=== PATIENT | male | born 1965 | race Caucasian/White ===

== ENCOUNTER 2016-11-12 15:50 | Emergency (ER) | payer MEDICARE, OTHER ==
[2016-11-12 13:49] LABS: BASOPHILS 1.4 %; BASOPHILS ABSOLUTE 0.09 10/3/uL (0.0-0.16); EOSINOPHILS 2.2 %; EOSINOPHILS ABSOLUTE 0.14 10/3/uL (0.0-0.53); IMMATURE GRANULOCYTES 0.2 %; IMMATURE GRANULOCYTES ABSOLUTE 0.01 10/3/uL (0.0-0.11); LYMPHOCYTES 20.7 %; MEAN CORPUS HGB CONC 32.6 g/dL (32.0-36.0); MEAN CORPUSCULAR HEMOGLOB 28.4 pg (26.0-34.0); MEAN CORPUSCULAR VOLUME 87.2 fL (80-100); MEAN PLATELET VOLUME 10.5 fL (9.2-13.0); MONOCYTES 5.9 %; MONOCYTES ABSOLUTE 0.37 10/3/uL (0.21-1.20); NEUTROPHILS 69.6 %; NEUTROPHILS ABSOLUTE 4.37 10/3/uL (2.02-8.40); PLATELET COUNT 164 10/3/uL (150-400)
[2016-11-12 13:51] LABS: ER CBC TAT 0 Hrs 08 Mins; HEMATOCRIT 35.3 % (40.0-51.0); HEMOGLOBIN 11.5 g/dL (13.6-17.8); MANUAL DIFF NO %; RED CELL COUNT 4.05 10/6/uL (4.7-6.1); WHITE BLOOD CELLS 6.3 10/3/uL (4.5-10.5)
[2016-11-12 13:57] LABS: INTERNATIONAL NORMAL RATI 1.3 UNITS (-); PARTIAL THROMBO TIME 42.7 SEC (22.5-37.2); PROTIME (NOT ORD) 15.7 SEC (12.0-14.5)
[2016-11-12 14:04] LABS: ALBUMIN 3.3 G/DL (3.5-5.0); ALKALINE PHOSPHATASE 550 U/L (45-117); BUN (BLOOD UREA NITROGEN) 39 MG/DL (6-23); CALCIUM, SERUM 9.5 MG/DL (8.5-10.4); CHLORIDE, SERUM 91 MMOL/L (96-112); CO2 (CARBON DIOXIDE) 32 MMOL/L (24-34); DIRECT BILIRUBIN 0.4 MG/DL (0.0-0.4); GFR AFRICAN AMERICAN 11 ML/MIN (>=60); GFR NON AFRICAN AMERICAN 9 ML/MIN (>=60); GLUCOSE, SERUM 154 MG/DL (60-99); INDIRECT BILIRUBIN(NOT ORDER) 0.4 MG/DL (0.1-0.9); POTASSIUM, SERUM 4.8 MMOL/L (3.5-5.3); SGOT(AST) 21 U/L (5-40); SGPT(ALT) 10 U/L (5-65); SODIUM, SERUM 132 MMOL/L (135-148); TOTAL BILIRUBIN 0.8 MG/DL (0-1.2); TOTAL PROTEIN 7.3 G/DL (6.0-8.5)
[2016-11-12 14:05] LABS: CHEST PAIN PROFILE TAT 0 Hrs 22 Mins; TROPONIN I 0.07 NG/ML (<0.05)
[~2016-11-12 15:50] MED LIST: *UNABLE3; ACET500CAP PO; APRES50 PO; ASAB PO; AUG875 PO; CLARIT10 PO; CLEAR EYE1 OPH; CORDARONE PO; COREG; COREG25 PO; COZAAR100 MG PO; DELSYM30 MG/5 ML PO; GGDM5ML PO; HUMULIN R1 ML SC; HYDROCODONE; INSNOVR; INSNOVR SC; K500 PO; L80 PO; LANTUS; LANTUS SC; LORTAB10 PO; NAP500 PO; NORCO1 TA1 PO; NORCO1 TAB PO; NORV10 PO; NORVASC; NOVOLIN R; PLAVIX; PLAVIX PO; PRAVACHOL40 MG PO; PRIN10 PO; PRIN20 PO; RENA-VITE PO; RENVELA; RENVELA800 MG PO; SENSIPAR30 M1 PO; SILVADENE1 % TOP; SYN.05 PO; TUMS E-X750 M2 PO; TUMSROLL PO; VIBRATAB100 MG PO; ZANTAC150 MG PO
[2016-12-11] MEDS ORDERED: LIPITOR40 PO (14:08)
[2016-12-11] MEDS ORDERED: LEVOTHYROXIN75 MCG PO (14:09)
== END 2016-11-12 16:00 | disposition home or self-care (01) ==
LOC: ER 15:50
PROVIDERS: Hospitalist
DX: R18.8 Other ascites (principal); J06.9 Acute upper respiratory infection, unspecified; Z99.2 Dependence on renal dialysis; J44.9 Chronic obstructive pulmonary disease, unspecified; I10 Essential (primary) hypertension; E11.9 Type 2 diabetes mellitus without complications; Z87.891 Personal history of nicotine dependence; Z89.512 Acquired absence of left leg below knee; Z89.511 Acquired absence of right leg below knee; Z88.5 Allergy status to narcotic agent; Z88.8 Allergy status to other drugs, medicaments and biological substances; Z79.4 Long term (current) use of insulin; Z79.899 Other long term (current) drug therapy
CPT/HCPCS: 71020; 74176; 80048; 80076; 83690; 83735; 84484; 85025; 85610; 85730; 93005; 96374; 99284

== ENCOUNTER 2016-12-21 08:30 | Day surgery (SDC) | payer MEDICARE, OTHER ==
--- NOTE | ~2016-12-21 | EGD ---
EGD REPORT [facility] [address] [place]. [address] NAME: VANCE MENARD : 63 STATUS : REG [facility]#: [id number] AGE: 51 ADM/REG DATE : 12/21/16 MR#: [id number] REPORT SERV DATE: 12/21/16 DICTATED BY: DATE: REPORT STATUS : Draft TRANSCRIBED BY: [employer] DATE: 12/21/16 Endoscopy Center Patient Name: Vance Menard Date of : 1965 Attending MD: YOJANA MURILLO MD Procedure Date No Time: 12/21/2016 Procedure: Upper GI endoscopy Indications: Heartburn, Suspected esophageal reflux Referring MD: VENUS SORIANO Medicines: as per anesthesia Complications: No immediate complications. Procedure: Pre-Anesthesia Assessment: - ASA Grade Assessment: IV - A patient with severe systemic disease that is a constant threat to life. After obtaining informed consent, the endoscope was passed under direct vision. Throughout the procedure, the patient's blood pressure, pulse, and oxygen saturations were monitored continuously. The GIF H190 [id number] was introduced through the mouth, and advanced to the third part of duodenum. The upper GI endoscopy was accomplished without difficulty. The patient tolerated the procedure. Findings: The examined esophagus was normal. A large amount of food (residue) was found in the gastric fundus and in the gastric body. removed with suction The examined duodenum was normal. Impression: - Normal esophagus. - A large amount of food (residue) in the stomach. - Normal examined duodenum. Recommendation: - Continue present medications. Procedure Code(s): --- Professional --- 48400, Esophagogastroduodenoscopy, flexible, transoral; diagnostic, including collection of specimen(s) by brushing or washing, when performed (separate procedure) Diagnosis Code(s): --- Professional --- R12, Heartburn CPT copyright 2013 [employer]. All rights reserved. EGD REPORT [facility] [address] [place]. [address] NAME: VANCE MENARD : [birth year] STATUS : REG [facility] [place] PAT#: [id number] AGE: 51 ADM/REG DATE : 12/21/16 MR#: [id number] REPORT SERV DATE: 12/21/16 DICTATED BY: DATE: REPORT STATUS : Draft TRANSCRIBED BY: [employer] DATE: 12/21/16 The codes documented in this report are preliminary and upon accounting machine servicer review may be revised to meet current compliance requirements. YOJANA MURILLO MD 12/21/2016 10:43 AM This report has been signed electronically. Number of Addenda: 0 Note Initiated On: 12/21/2016 10:19 AM Scope Withdrawal Time 0 hours 0 minutes 0 seconds [address] [place] [address]
--- NOTE | ~2016-12-21 | EGD ---
EGD REPORT [facility] [address] [place]. [address] NAME: VANCE MENARD : [birth year] STATUS : REG [facility]#: [id number] AGE: 51 ADM/REG DATE : 12/21/16 MR#: [id number] REPORT SERV DATE: 12/21/16 DICTATED BY: YOJANA MURILLO DATE: 12/21/16 REPORT STATUS : Draft TRANSCRIBED BY: [employer] DATE: 12/21/16 Endoscopy Center Patient Name: Vance Menard Date of : 1965 Attending MD: YOJANA MURILLO MD Procedure Date No Time: 12/21/2016 Procedure: Colonoscopy Indications: High risk colon cancer surveillance: Personal history of colonic polyps Referring MD: VENUS SORIANO Medicines: as per anesthesia Complications: No immediate complications. Procedure: Pre-Anesthesia Assessment: - ASA Grade Assessment: IV - A patient with severe systemic disease that is a constant threat to life. After I obtained informed consent, the scope was passed under direct vision. Throughout the procedure, the patient's blood pressure, pulse, and oxygen saturations were monitored continuously. The PCF [id number] was introduced through the anus and advanced to the splenic flexure. The colonoscopy was somewhat difficult due to restricted mobility of the colon, significant looping and a tortuous colon. The patient tolerated the procedure. The quality of the bowel preparation was fair. Findings: The perianal and digital rectal examinations were normal. Internal hemorrhoids were found during endoscopy and were mild. sharp angle at splenic flexure scope would not pass Impression: - Internal hemorrhoids. Recommendation: - Perform an air contrast barium enema. Procedure Code(s): --- Professional --- 71739, 51, Colonoscopy, flexible, proximal to splenic flexure; diagnostic, with or without collection of specimen(s) by brushing or washing, with or without colon decompression (separate procedure) Diagnosis Code(s): --- Professional --- K64.8, Other hemorrhoids Z86.010, Personal history of colonic polyps EGD REPORT [facility] [address] [address] NAME: VANCE MENARD : [birth year] STATUS : REG [facility]#: [id number] AGE: 51 ADM/REG DATE : 12/21/16 MR#: [id number] REPORT SERV DATE: 12/21/16 DICTATED BY: YOJANA MURILLO. DATE: 12/21/16 REPORT STATUS : Draft TRANSCRIBED BY: [employer] DATE: 12/21/16 CPT copyright 2013 [employer]. All rights reserved. The codes documented in this report are preliminary and upon stripper black and white review may be revised to meet current compliance requirements. YOJANA MURILLO MD 12/21/2016 11:09 AM This report has been signed electronically. Number of Addenda: 0 Note Initiated On: 12/21/2016 10:20 AM Scope Withdrawal Time 0 hours 0 minutes 0 seconds [address] [address]
[~2016-12-21 08:30] MED LIST changes: +LEVOTHYROXIN75 MCG PO; +LIPITOR40 PO
[2016-12-21 09:20] LABS: CALCIUM, SERUM 9.8 MG/DL (8.5-10.4); CHLORIDE, SERUM 96 MMOL/L (96-112); CO2 (CARBON DIOXIDE) 33 MMOL/L (24-34); GFR AFRICAN AMERICAN 15 ML/MIN (>=60); GFR NON AFRICAN AMERICAN 13 ML/MIN (>=60); GLUCOSE, SERUM 143 MG/DL (60-99); POTASSIUM, SERUM 4.8 MMOL/L (3.5-5.3); SODIUM, SERUM 136 MMOL/L (135-148)
[2016-12-21 09:21] LABS: BUN (BLOOD UREA NITROGEN) 30 MG/DL (6-23); CREATININE 4.72 MG/DL (0.70-1.30)
== END 2016-12-21 23:59 | disposition home or self-care (01) ==
LOC: DMU 08:30
PROVIDERS: Anesthesiology; Internal Medicine Gastroenterology
PROC: 0DJD8ZZ Inspection of Lower Intestinal Tract, Via Natural or Artificial Opening Endoscopic (ICD-10-PCS; principal; 2016-12-21 09:30)
PROC: 0DJ08ZZ Inspection of Upper Intestinal Tract, Via Natural or Artificial Opening Endoscopic (ICD-10-PCS; 2016-12-21 09:30)
DX: Z12.11 Encounter for screening for malignant neoplasm of colon (principal); K64.8 Other hemorrhoids; R12 Heartburn; E78.5 Hyperlipidemia, unspecified; I73.9 Peripheral vascular disease, unspecified; I49.9 Cardiac arrhythmia, unspecified; I48.91 Unspecified atrial fibrillation; E11.22 Type 2 diabetes mellitus with diabetic chronic kidney disease; N18.6 End stage renal disease; I12.0 Hypertensive chronic kidney disease with stage 5 chronic kidney disease or end stage renal disease; R18.8 Other ascites; K74.60 Unspecified cirrhosis of liver; Z88.5 Allergy status to narcotic agent; Z88.8 Allergy status to other drugs, medicaments and biological substances; Z89.421 Acquired absence of other right toe(s); Z86.010 Personal history of colon polyps; Z98.41 Cataract extraction status, right eye; Z98.42 Cataract extraction status, left eye; Z89.511 Acquired absence of right leg below knee; Z89.432 Acquired absence of left foot; Z98.890 Other specified postprocedural states; Z96.1 Presence of intraocular lens; Z87.891 Personal history of nicotine dependence; Z79.899 Other long term (current) drug therapy; Z79.891 Long term (current) use of opiate analgesic; Z79.4 Long term (current) use of insulin
CPT/HCPCS: 80048